=== PATIENT | female | born 1950 | race Caucasian/White ===

== ENCOUNTER 2018-01-15 09:47 | Outpatient (CLI) | payer OTHER ==
[~2018-01-15 09:47] MED LIST: AROMASIN25 MG PO; METHOCARBAMOL500 MG PO; XANAX XR0.5 MG PO; XANAX0.25 MG PO
== END 2018-01-15 09:54 | disposition home or self-care (01) ==
LOC: SONOGRAMA 09:47
DX: D27.1 Benign neoplasm of left ovary (principal); N84.0 Polyp of corpus uteri

== ENCOUNTER 2018-11-03 06:22 | Day surgery (SDC) | payer OTHER ==
[~2018-11-03 06:22] MED LIST changes: +AROMASIN PO
== END 2018-11-03 17:40 | disposition home or self-care (01) ==
LOC: CIR.AMB 06:22
DX: N95.0 Postmenopausal bleeding (principal)